=== PATIENT | female | born 1965 | race Caucasian/White ===

== ENCOUNTER 2016-12-19 09:27 | Emergency (ER) | payer MEDICARE ==
[~2016-12-19] VITALS: Ht 157.5 cm; Wt 75.7 kg
[~2016-12-19 09:27] MED LIST: FLEXERIL10 MG PO; MOTRIN800 MG PO
[2016-12-19] MEDS ORDERED: NAPROSYN500 MG PO (10:22)
[2016-12-19 11:02] VITALS: BP 138/96
== END 2016-12-19 11:03 | disposition home or self-care (01) ==
LOC: EME 09:27
DX: S93.602A Unspecified sprain of left foot, initial encounter (principal); Y93.01 Activity, walking, marching and hiking
CPT/HCPCS: 73630; 99281; 99283